=== PATIENT | female | born 1950 | race Caucasian/White ===

== ENCOUNTER 2024-07-13 15:46 | Inpatient (IN) ==
[2024-07-13] MEDS: 0.9 % SODIUM CHLORIDE 1,000 ML IV ONE (17:05)
[2024-07-13] MEDS: ONDANSETRON 4 MG/2 ML VIAL IV ONE (17:10)
[2024-07-13 17:36] LABS: ALT/SGPT 24 U/L (<40); AST/SGOT 44 U/L (<32); Albumin 4.1 gm/dL (3.2-5.2); Albumin/Globulin Ratio 1.5 (1.0-2.3); Alkaline Phosphatase 86 U/L (39-117); Basophils # (Auto) 0.01 K/mcL (0.00-0.30); Basophils % (Auto) 0.1 % (0.0-2.0); Bilirubin,Total 0.5 mg/dL (0.1-1.0); Blood Urea Nitrogen 24 mg/dL (8-23); Calcium 9.9 mg/dL (8.6-10.4); Carbon Dioxide 21 mmol/L (22-30); Chloride 88 mmol/L (96-108); Eosinophils # (Auto) 0.15 K/mcL (0.00-0.70); Eosinophils % (Auto) 1.3 % (0.0-7.0); Globulin 2.7 gm/dL (2.2-3.7); Glomerular Filtration Rate 86; Glucose 118 mg/dL (70-105); Hematocrit 43.6 % (34.1-44.9); Hemoglobin 15.1 g/dL (11.2-15.7); Lymphocytes % (Auto) 14.3 % (15.5-49.0); Mean Cell Volume 88.8 fL (80.0-100.0); Mean Corpuscular HGB Conc 34.6 g/dL (31.0-36.0); Mean Platelet Volume 10.4 fL (8.8-12.5); Monocytes # (Auto) 0.67 K/mcL (0.10-0.90); Monocytes % (Auto) 5.6 % (1.0-12.0); Neutrophils % (Auto) 78.5 % (38.0-78.0); Platelet Count 271 K/mcL (140-440); Potassium 3.5 mmol/L (3.3-5.1); RBC 4.91 M/mcL (3.59-5.38); Red Cell Distribution Width 13.6 % (11.5-14.5); Sodium 125 mmol/L (133-145); WBC 11.9 K/mcL (4.5-11.0)
[2024-07-13] MEDS: HYDROcodone/APAP 10/325MG TABLET PO ONE (18:54)
[2024-07-13] MEDS: HYDROcodone/APAP 5/325MG TABLET PO ONE (19:04)
[2024-07-13] MEDS ORDERED: PROCHLORPERAZINE 10 MG/2 ML VIAL IV PRN (21:56)
[2024-07-13] MEDS ORDERED: ACETAMINOPHEN 325 MG TABLET PO PRN (21:56)
[2024-07-13] MEDS ORDERED: KETOROLAC 15 MG/ML VIAL IV PRN (21:56)
[2024-07-13] MEDS ORDERED: SENNOSIDES 1 TABLET PO PRN (21:56)
[2024-07-13] MEDS ORDERED: HYDROmorphone 0.5 MG/0.5 ML SYRINGE IV PRN (21:56)
[2024-07-13] MEDS: 0.9 % SODIUM CHLORIDE 10 ML SYRINGE IV SCH (22:02)
[2024-07-13] MEDS: 0.9 % SODIUM CHLORIDE 1,000 ML IV SCH (22:02)
[2024-07-13] MEDS: IPRATROPIUM/ALBUTEROL 3 ML AMPUL.NEB NEB SCH (22:34)
[2024-07-13] MEDS: ZOLPIDEM 5 MG TABLET PO PRN (22:51)
[2024-07-13] MEDS: HYDROcodone/APAP 5/325MG TABLET PO PRN (22:56)
[2024-07-13] MEDS: ONDANSETRON 4 MG/2 ML VIAL IV PRN (22:57)
[2024-07-14 06:35] LABS: ALT/SGPT 23 U/L (<40); AST/SGOT 41 U/L (<32); Albumin/Globulin Ratio 1.3 (1.0-2.3); Alkaline Phosphatase 82 U/L (39-117); Bilirubin,Total 0.5 mg/dL (0.1-1.0); Blood Urea Nitrogen 23 mg/dL (8-23); Calcium 9.9 mg/dL (8.6-10.4); Carbon Dioxide 21 mmol/L (22-30); Chloride 98 mmol/L (96-108); Glomerular Filtration Rate 73; Glucose 97 mg/dL (70-105); Potassium 3.6 mmol/L (3.3-5.1); Sodium 135 mmol/L (133-145)
[2024-07-14 07:41] LABS: Basophils # (Auto) 0.03 K/mcL (0.00-0.30); Basophils % (Auto) 0.2 % (0.0-2.0); Eosinophils # (Auto) 0.06 K/mcL (0.00-0.70); Eosinophils % (Auto) 0.5 % (0.0-7.0); Hematocrit 45.9 % (34.1-44.9); Lymphocytes % (Auto) 19.2 % (15.5-49.0); Mean Cell Volume 93.7 fL (80.0-100.0); Mean Corpuscular HGB Conc 32.7 g/dL (31.0-36.0); Monocytes # (Auto) 1.03 K/mcL (0.10-0.90); Monocytes % (Auto) 8.2 % (1.0-12.0); Neutrophils % (Auto) 71.7 % (38.0-78.0); Platelet Count 209 K/mcL (140-440); Red Cell Distribution Width 14.1 % (11.5-14.5); WBC 12.5 K/mcL (4.5-11.0)
[2024-07-14] MEDS: ENOXAPARIN 40 MG/0.4 ML SYRINGE SQ SCH (08:22)
[2024-07-14] MEDS ORDERED: METHOCARBAMOL 750 MG TABLET PO PRN (09:34)
[2024-07-14] MEDS: VERAPAMIL 120 MG TAB.XL.24H PO SCH (10:10)
[2024-07-14] MEDS: PREGABALIN 25 MG CAPSULE PO SCH (14:53)
[2024-07-14] MEDS: ALBUTEROL SULFATE 2.5 MG/3 ML NEBULIZER NEB PRN (16:44)
[2024-07-14] MEDS: ZOLPIDEM 5 MG TABLET PO PRN (21:00)
[2024-07-14] MEDS: HYDROcodone/APAP 10/325MG TABLET PO PRN (21:01)
[2024-07-15 06:39] LABS: ALT/SGPT 21 U/L (<40); AST/SGOT 29 U/L (<32); Albumin 3.5 gm/dL (3.2-5.2); Albumin/Globulin Ratio 1.5 (1.0-2.3); Alkaline Phosphatase 65 U/L (39-117); Bilirubin,Total 0.3 mg/dL (0.1-1.0); Blood Urea Nitrogen 20 mg/dL (8-23); Carbon Dioxide 26 mmol/L (22-30); Chloride 102 mmol/L (96-108); Globulin 2.3 gm/dL (2.2-3.7); Glomerular Filtration Rate 86; Glucose 96 mg/dL (70-105); Potassium 3.3 mmol/L (3.3-5.1); Sodium 137 mmol/L (133-145)
[2024-07-15] MEDS: LEVOTHYROXINE 150 MCG TABLET PO SCH (07:09)
[2024-07-15] MEDS: LISINOPRIL 20 MG TABLET PO SCH (09:11)
[2024-07-15] MEDS: Fluticasone Furoate-Vilanterol [Breo Ellipta] 200 INH SCH (09:11)
[2024-07-15 12:00] LABS: Basophils # (Auto) 0.05 K/mcL (0.00-0.30); Basophils % (Auto) 0.5 % (0.0-2.0); Eosinophils % (Auto) 0.9 % (0.0-7.0); Hematocrit 38.7 % (34.1-44.9); Hemoglobin 12.7 g/dL (11.2-15.7); Lymphocytes # (Auto) 2.23 K/mcL (1.50-4.80); Lymphocytes % (Auto) 20.3 % (15.5-49.0); Mean Cell Volume 95.3 fL (80.0-100.0); Mean Corpuscular HGB Conc 32.8 g/dL (31.0-36.0); Mean Platelet Volume 11.6 fL (8.8-12.5); Monocytes % (Auto) 8.2 % (1.0-12.0); Neutrophils % (Auto) 69.8 % (38.0-78.0); Platelet Count 197 K/mcL (140-440); RBC 4.06 M/mcL (3.59-5.38); Red Cell Distribution Width 14.8 % (11.5-14.5)
[2024-07-16 07:40] VITALS: TEMP 96.9; O2SAT 97
[2024-07-16] MEDS: POTASSIUM CHLORIDE 20 MEQ TABLET PO SCH (08:04)
[2024-07-16] MEDS: FUROSEMIDE 20 MG TABLET PO SCH (08:05)
== END 2024-07-16 09:49 | disposition home or self-care (01) | DRG 641 ==
LOC: ED 15:46 → MEDSUR 21:54
PROVIDERS: ADMIT Internal Medicine; ATTEND Internal Medicine